=== PATIENT | male | born 1980 ===

== ENCOUNTER 2018-01-06 11:35 | Emergency (ER) | payer SELFPAY ==
[2018-01-06 11:39] VITALS: BP 122/108
--- NOTE | 2018-01-06 11:42 | ER Report ---
History and Physical Time Seen By MD: 11:42 HPI/ROS CHIEF COMPLAINT: Cerumen impaction HISTORY OF PRESENT ILLNESS: This is a 37-year-old male who presents to the emergency department for cerumen impaction. Patient states that her last to 3 days he's had some decreased hearing in his left ear then today he states he has hearing loss in the left ear secondary to ear wax impaction. Patient states that he's tried D Brox at home or water with no success. Patient states that he has a history of cerumen impaction. Patient also states that he did try a Q-tip which may have shoved it a little bit further down in the left ear canal. Patient denies nausea, vomiting, aches, chills, chest pain, shortness of breath. Allergies: Coded Allergies: tetanus and diphtheria toxoids (Verified Allergy, Unknown, 01/06/18) Home Meds No Active Prescriptions or Reported Meds Past Medical/Surgical History Patient has a past medical and surgical history of asthma, allergies, cerumen impaction. Reviewed Nurses Notes: Yes Constitutional Vital Sign - Last 24 Hours 01/06/18 11:39 Temp 97.4 Pulse 97 Resp 18 B/P (MAP) 122/108 Pulse Ox 92 O2 Delivery Room Air Physical Exam General appearance: Alert no distress. Respiratory: Chest is non tender, lungs are clear to auscultation. Cardiac: Regular rate and rhythm. ENT: Right TM intact, landmarks noted, pearly shields. Unable to visualize left TM secondary to cerumen impaction. External canal intact no erythema or discharge noted. Small amount of cerumen removed, was able to remove a small amount with curette, after reevaluation of the TM it was noted to have a small perforation and scar tissue. No injection or erythema. DIFFERENTIAL DIAGNOSIS: After history and physical exam differential diagnosis was considered for cerumen impaction. Medical Decision Making ED Course/Re-evaluation ED Course The patient was admitted to room. A history of physical obtained. The patient's left inner was impacted with cerumen, the left ear was irrigated we were able to remove some of the cerumen a was able to manually remove some of it using a curette patient tolerated well. After I did reexamine the left ear majority of the cerumen was removed but it was noted that the left TM was perforated, I did ask the patient if he had been pushing anything in his ear to try to clean it he said the only thing that he is put in his ear recently is a Q-tip, he also states that he's had pressure in that left ear. There is no sign of infection, no injection or erythema. There is a significant amount of scar tissue on the left TM. I did instruct the patient to continue to monitor the discharge from the left ear. I also instructed him to follow-up with his primary care provider within 7 days if no improvement, I also instructed him that he could potentially follow up with Dr. Mclean the ENT. Patient states he will follow- up with one of them within the next 7 days. Patient had no other questions or concerns at this time and was discharged home. Patient was in agreement with this plan of care. Decision to Disposition Date: Jan 06, 2018 Decision to Disposition Time: 12:15 Depart Departure Latest Vital Signs Vital Signs Date Time Temp Pulse Resp B/P (MAP) Pulse Ox O2 Delivery O2 Flow Rate FiO2 01/06/18 11:39 97.4 97 18 122/108 92 Room Air Impression: Primary Impression: Impacted cerumen of left ear Additional Impression: Perforated tympanic membrane Condition: Improved Disposition: HOME OR SELF-CARE New Scripts No Active Prescriptions or Reported Meds Patient Instructions: Cerumen Impaction (ED) Additional Instructions: Drink plenty of fluids. Get plenty of rest. Try 1/2 warm water and 1/2 peroxide every few months to help with excessive cerumen production. Follow up with your primary care provider as needed. Return to the ED for any other concerns you may need. Problem Qualifiers Additional Impression: Perforated tympanic membrane Laterality: left Qualified Codes: H72.92 - Unspecified perforation of tympanic membrane, left ear KAREN BAEZ [employer]-BC Jan 06, 2018 11:42
== END 2018-01-06 12:16 | disposition home or self-care (01) ==
LOC: ER 11:39
DX: H61.22 Impacted cerumen, left ear (principal); H72.92 Unspecified perforation of tympanic membrane, left ear
CPT/HCPCS: 99283